=== PATIENT | female | born 1940 | race Caucasian/White ===

== ENCOUNTER 2020-12-27 12:52 | Emergency (ER) | payer OTHER ==
[2020-12-27 13:26] VITALS: BP 149/73; PULSE 90; TEMP 98.2; BMI 26.5
[2020-12-27] MEDS ORDERED: CEPHALEXIN MONOHYDRATE 500 MG CAPSULE (UD) PO ONE (15:06)
== END 2020-12-27 15:15 | disposition home or self-care (01) ==
LOC: JERFT 12:52 → JER 12:52 → JERFT 15:15
DX: L03.115 Cellulitis of right lower limb (principal)
CPT/HCPCS: 93971-TC; 99284-25